=== PATIENT | male | born 1960 | race Caucasian/White ===

== ENCOUNTER 2024-03-16 08:26 | Observation (INO) ==
--- NOTE | 2024-02-16 13:24 | PAT Medication Instructions ---
Medication Instructions Date of Service February 16, 2024 Home Medications amlodipine 10 mg tablet 10 mg PO QAM ascorbic acid (vitamin C) 1,000 mg tablet (Vitamin C) 1 g PO QAM atorvastatin 40 mg tablet 40 mg PO HS garlic 1,000 mg PO QAM [id number] 300 mcg-K 60 mcg-lycop 600 mcg-lutein 300 mcg tablet (Centrum Silver Men) 1 tab PO QAM MEDICATION INSTRUCTIONS: STOP taking 2 weeks before surgery garlic 1,000 mg PO QAM DO NOT take the morning of surgery ascorbic acid (vitamin C) 1,000 mg tablet (Vitamin C) 1 g PO QAM [id number] 300 mcg-K 60 mcg-lycop 600 mcg-lutein 300 mcg tablet (Centrum Silver Men) 1 tab PO QAM Take morning of surgery With a small sip of water, OTHERWISE NOTHING TO EAT OR DRINK AFTER MIDNIGHT: amlodipine 10 mg tablet 10 mg PO QAM Take evening before surgery atorvastatin 40 mg tablet 40 mg PO HS Other Notes If you have any questions please call us at [phone] or [phone] or [phone] or [phone]
--- NOTE | 2024-02-25 08:46 | Anesthesiology Consultation ---
Date of Service February 25, 2024 Assessment & Plan (1) Encounter for pre-operative examination: - patient reports epigastric discomfort with activity associated with GI "gurgling" ongoing for years-denies change or worsening-denies radiation. He states has an upcoming PCP appointment 03/08 to discuss this. Optimization form to be faxed to PCP, Dr. Neo Jurado [facility]. - check BSG am DOS. - Outpatient joint assessment: Patient is currently scheduled for inpatient pathway. If re-evaluated and patient/surgeon requests outpatient pathway, patient is/is not acceptable candidate for outpatient joint program from anesthesia standpoint pending surgeon's office assessment of pt motivation/support/completion of same day joint program preop requirements. Chart Review Chart Review: Pending: Refer to Additional Notes / Consult section and Patient seen in Pre Admission Testing Teaching & Discussion Pre-Anesthesia Teaching/Discussion Notes: Instructed NPO after midnight before surgery, except medications with 15 cc of water. Medication instructions provided according to the PAT guidelines. History Surgery Operation Date: 03/16/24 07:00 Proposed Procedures p Left Total Knee Arthroplasty - Cirilo Cortes MD Height/Weight Height: 6 ft Weight: 130.6 kg Allergies Allergy/AdvReac Type Severity Reaction Status Date / Time No Known Allergies Allergy Verified 02/16/24 07:58 Medications Home Medications Medication Instructions Recorded Confirmed Last Taken amlodipine 10 mg tablet 10 mg PO QAM 05/08/21 02/16/24 05/16/21 ascorbic acid (vitamin C) 1,000 mg 1 g PO QAM 05/08/21 02/16/24 05/13/21 tablet (Vitamin C) atorvastatin 40 mg tablet 40 mg PO HS 05/08/21 02/16/24 05/15/21 garlic 1,000 mg PO QAM 05/08/21 02/16/24 05/13/21 keopufih-wj-dqpzh 300 mcg-K 60 1 tab PO QAM 05/08/21 02/16/24 05/13/21 mcg-lycop 600 mcg-lutein 300 mcg tablet (Centrum Silver Men) Past Medical History Medical History (Updated 02/25/24 @ 09:07 by Estela Billingsley PA-C) Arthritis Degenerative disc disease Diabetes Hyperlipidemia Hypertension controlled, stable per pt Patient denies h/o stroke, seizures, heart attack, heart failure, blood clots/DV Ts or blood transfusions. Exercise / Class Metabolic Activity II 4-5 Yardwork/Stairs/Walk up hill (denies chest discomfort or shortness of breath with one flight of stairs) Past Family History Family History Other No family history of adverse response to anesthesia Past Surgical History Surgical History History of arthroscopy of hip right hip, 2021 History of cardiac cath 2006, + stress test, ph anson, no stents no findings; no longer sees cardio History of colonoscopy History of total hip arthroplasty RT, 2014 Past Anesthesia History No Hx of Anesthesia Complications and No Family Hx of Anesthesia Complications History of PONV No Hx of PONV and No Hx of Motion Sickness Social History Smoking Status: Former smoker tobacco type: smokeless tobacco Do You Dip or Chew Tobacco: Yes (-advised) Smoking End Date: 30 years ago, occasional Hx Alcohol Use: Yes Alcohol type: hard liquor alcohol intake frequency: 3 or more drinks per day Alcohol Intake Frequency Comment: pt has stopped drinking completely for upcoming surgery, 02/10/24 Hx Substance Use: Yes substance use type: marijuana (-advised) Last Used Substance Other:: couple hits a time to help with pain, last use 02/15/24 Review of Systems Denies tremors or seizures since stopping alcohol. Snoring, denies witnessed apneas. Patient denies chest pain, shortness of breath, dyspnea on exertion, reflux, fever, chills, cough, wheezing, or palpitations. Physical Exam Vital Signs Vitals BP 146/78 P 75 TEMP 98.3 SP02 96% on RA RESP 18 Physical Patient resting comfortably in chair in no acute distress, alert and oriented, responding appropriately throughout visit Full cervical extension range of motion without pain TMD < 3 finger breadths Mallampati Score 3 Dentition: intact, denies chipped or loose teeth, caps/crowns, implants or bridges Lungs: normal respiratory effort. Good air movement, clear throughout to auscultation, no adventitious breath sounds Cardiac: regular rate and rhythm, no murmurs noted Carotid arteries: negative bruit bilat Lab Results Anesthesia Preop Results Results Anesthesia Widget: PT 11.1 Seconds (9.0-12.0) 02/25/24 PTT 29 Seconds (21-31) 02/25/24 INR 1.0 (0.9-1.1) 02/25/24 Blood Type A Positive 02/25/24 Antibody Screen NEGATIVE 02/25/24 Testing Laboratory Results 02/24/24 WBC: 8.3 H/H: 15/44 PLATELETS: 172,000 SODIUM: 138 POTASSIUM: 4.0 CHLORIDE: 106 CO2: 26 BUN: 9 CREATININE: 0.9 GLUCOSE: 150 A1c: 6.8% Electrocardiogram Date: 02/25/24 NSR, rate 74 bpm Chest X-Ray Date: 02/25/24 No acute cardiopulmonary findings.
--- NOTE | 2024-03-13 10:42 | History & Physical Report ---
Date of Service March 13, 2024 Assessment & Plan (1) Left knee DJD: 63-year-old male with advanced left knee DJD. He does have multiple other comorbidities including diabetes, obesity, elevated cholesterol, hypertension. He has failed conservative measures. He would like to have his left knee replaced. Plan: Isabelle to proceed with left knee replacement. The risks of this procedure explained and he understands. He does have some edema distally and is going to be very important for him to be compliant with wearing his ZEB stockings. Will use aspirin for DVT prophylaxis. Will likely put some vancomycin in the cement. He is planned to be discharged to home using [facility]. (2) Diabetes: (3) Degenerative disc disease: (4) Hypertension: (5) Hyperlipidemia: (6) Obesity: History of Present Illness Chief Complaint: . Persistent, progressive left knee pain and discomfort. Primary Care Provider: Neo Jurado . The patient is a 63-year-old gentleman who presents for surgical treatment of his left knee. Said a long history of gradual progressive left knee pain and discomfort. Is been through extensive conservative treatment over the years which would become less successful over time. The last shot did not help him at all. He has become more debilitated by his pain. He is actually had to resort to using a cane to get around. He would like to have his left knee fixed. Of note, the patient has a history of right hip replacement done by Dr. Betty do in 2014 and then a scope and iliopsoas release by Dr. Dye just 2 years ago. Allergies Allergy/AdvReac Type Severity Reaction Status Date / Time No Known Allergies Allergy Verified 02/16/24 07:58 Home Medications Medication Instructions Recorded Confirmed Type amlodipine 10 mg tablet 10 mg PO QAM 05/08/21 02/16/24 History ascorbic acid (vitamin C) 1,000 mg 1 g PO QAM 05/08/21 02/16/24 History tablet (Vitamin C) atorvastatin 40 mg tablet 40 mg PO HS 05/08/21 02/16/24 History garlic 1,000 mg PO QAM 05/08/21 02/16/24 History qezdqqgw-jx-hbcpb 300 mcg-K 60 1 tab PO QAM 05/08/21 02/16/24 History mcg-lycop 600 mcg-lutein 300 mcg tablet (Centrum Silver Men) Past Med/Surg History Problem List (Updated 03/13/24 @ 10:39 by Cirilo Cortes MD) Obesity Left knee DJD Status post arthroscopy of hip Encounter for pre-operative examination Iliopsoas bursitis of right hip Medical History Diabetes Degenerative disc disease Arthritis Hypertension controlled, stable per pt Hyperlipidemia Surgical History History of arthroscopy of hip right hip, 2021 History of total hip arthroplasty RT, 2014 History of colonoscopy History of cardiac cath 2006, + stress test, ph anson, no stents no findings; no longer sees cardio Family History Other No family history of adverse response to anesthesia Social History Smoking Status: Former smoker Tobacco Type: Cigarettes Second Hand Exposure: Yes (hx, none for at least 20 years); Do You Dip or Chew Tobacco: Yes (-advised); Hx Alcohol Use: Yes Alcohol type: hard liquor Hx Substance Use: Yes Last Used Substance Other:: couple hits a time to help with pain, last use 02/15/24 Preferred Language: Kyrgyz Communication Ability: Effective Direct Care Supervisor Required: No Beliefs That Will Affect Care: None Current Living Situation: Alone Feels Safe at Home: Yes Assistive Devices: Glasses Review of Systems All systems reviewed & are unremarkable except as noted in HPI & below. Physical Exam . Physical examination reveals a fairly large middle-age male. Examination of his left knee reveals a patient ambulates with use of a cane. He is got varus alignment to his knee. He has a little bit of a varus thrust with weightbearing. Moderate large soft tissue envelope. Does have some edema distally. Range of motion is about 5-1 15. No particular pain with hip motion. Normal hip motion. He is neurologically intact. Constitutional WD/WN, vitals as above Neck trachea midline, no thyromegaly Respiratory normal respiratory effort, lungs clear to auscultation Cardiovascular RRR, no murmur, no edema Gastrointestinal (Abdomen) normal bowel sounds, soft, nontender, no hepatosplenomegaly Results & Data Results & Data Laboratory Results . Diagnostic Findings . X-rays of the left knee were reviewed. Shows advanced left knee DJD. Is got complete loss of his medial joint space. Got a little bit of tibiofemoral subluxation. PG Care Time/CCT Total # of Minutes Spent Total Time Spent with Patient: Total time spent is greater than 50% in coordination of care (as documented) at patient's floor/unit and/or counseling patient: Coding Level of Care Code None Diagnoses Left knee DJD M17.12 Diabetes E11.9 Degenerative disc disease Hypertension I10 Hyperlipidemia E78.5 Obesity E66.9
[~2024-03-16 08:26] MED LIST: BUPIVACAINE 0.25% PF 30 ML VIAL ONE; BUPIVACAINE 0.5 % 5 MG/1 ML PF 10ML VIAL ONE
[2024-03-16] MEDS ORDERED: LIDOCAINE 2% 2 ML VIAL/AMP(20MG/ML) INFIL ONE (09:50)
[2024-03-16] MEDS ORDERED: MIDAZOLAM HCL 1 MG/ML 2ML VIAL ONE (09:50)
[2024-03-16] MEDS ORDERED: fentaNYL citrate PF 100 MCG/2 ML VIAL ONE (09:50)
--- NOTE | 2024-03-16 10:21 | History & Physical Bridge Note ---
Date of Service March 16, 2024 History & Physical Bridge Note I have examined the patient, reviewed the History & Physical and in the interval since the performance of the History & Physical I have noted the following changes of clinical significance: no changes noted
[2024-03-16] MEDS: ACETAMINOPHEN 500 MG TAB PO SCH ×2 (10:35→17:08)
[2024-03-16] MEDS: FAMOTIDINE 20 MG TAB PO SCH (10:35)
[2024-03-16] MEDS: dexAMETHasone**PF** 10 MG/ML VIAL IV SCH (10:35)
[2024-03-16] MEDS: CeleBREX 200 MG CAP PO SCH (10:35)
[2024-03-16] MEDS: METOCLOPRAMIDE HCL 10 MG TABLET PO SCH (10:36)
[2024-03-16] MEDS: LR 60ML/HR IV SCH (10:36)
[2024-03-16] MEDS: LR 500ML BOLUS, THEN 15ML/HR IV SCH (10:36)
[2024-03-16] MEDS ORDERED: ONDANSETRON INJ 2 MG/ML 2 ML VIAL IV PRN ×2 (10:38→16:01)
[2024-03-16] MEDS ORDERED: PROMETHAZINE HCL 6.25 MG in SODIUM CHLORIDE 0.9% 50 ML IV PRN (10:38)
[2024-03-16] MEDS ORDERED: ATROPINE SULFATE 0.1 MG/ML 10ML SYR IV PRN (10:38)
[2024-03-16] MEDS ORDERED: ePHEDrine sulfate 50 MG/ML AMP IV PRN (10:38)
[2024-03-16] MEDS ORDERED: fentaNYL citrate PF 100 MCG/2 ML VIAL IV PRN (10:38)
[2024-03-16] MEDS: ceFAZolin 3000MG 3,000 MG/72.5 ML BAG IV SCH (12:14)
[2024-03-16] MEDS ORDERED: ceFAZolin 330 MG/ML 1 GM VIAL ONE (12:32)
[2024-03-16] MEDS: ROPIV 0.5% 246mg, Ketorolac 30mg, EPINEPHrine 0.5mg in NSS INFIL SCH (12:48)
[2024-03-16] MEDS: ORTHO JOINT ANESTHETIC ONE (12:49)
[2024-03-16] MEDS: VANCOMYCIN HCL 1000MG/20ML VIAL ONE (13:01)
[2024-03-16] MEDS: TRANEXAMIC ACID 1,000 MG **IV Intra-op IV SCH (13:09)
--- NOTE | 2024-03-16 14:08 | Operative Report ---
PG Post Operative Report Pre & Post Diagnosis Operation Date: 03/16/24 10:40 Pre-Op Diagnosis: Left Knee Degenerative Joint Disease Post-Op Diagnosis: Left Knee Degenerative Joint Disease I identified the patient and participated in the time-out.: Yes Procedure Operation Date: 03/16/24 10:40 Actual Procedures p Left Total Knee Arthroplasty(Left) - Cirilo Cortes MD Surgeon Cirilo Cortes MD Marketing Analytics Manager Griffin Guerra PA-C Estimated Blood Loss 100 Findings Consistent with Post-Op Diagnosis operative findings revealed advanced left knee DJD with grade 4 phgi-vi-sgqx disease of the medial and patellofemoral compartments. Specimens left knee sent for pathology Anesthesia Type Spinal MAC Complications none Disposition Accompanied Patient To Recovery: No Indications Patient is a 63-year-old very large gentleman whose had a several year history of increasing left knee pain discomfort described to gotten worse over time. He failed all conservative measures. X-rays show advanced knee arthritis. He el ected proceed with total knee arthroplasty. Description of Procedure Operative implants consists of: 1 Biomet Vanguard size 70 left posterior stabilized femoral component. 2. Biomet size 75 tibial tray. 3. 14 mm posterior stabilized polyethylene insert. 4. 31 x 8 all poly patella. The patient was taken to the op room, identified, and placed on the operating table in the supine position. All contact areas were appropriately padded. IV antibiotics fibra anesthesia team. A spinal anesthetic and adductor canal block had been provided in the holding area. A left thigh high tourniquet was then placed. The left lower extremity was then prepped and draped in usual sterile fashion. The left leg was elevated and exsanguinated with use of an Esmarch and a turn was placed at 300 mmHg. An anterior approach to the left knee was then performed to longitudinal incision centered over the patella. Sharp dissection was Through subcutaneous tissue down the extensor mechanism. A medial parapatellar arthrotomy incision was made. Some subperiosteal dissection was carried out medially. The fat pad was dissected from Neath patella tendon. The lateral patellofemoral ligament was released. Patella subluxated laterally and the knee was flexed. The osteophytes taken on distal femur. The ACL and PCL were then released from distal femur the tibia subluxated anteriorly. The external tibial alignment jig was then placed on the anterior face the tibia and adjusted 14 mm medially. The proximal tibial cut was made remove about 1 to 2 mm of bone from the medial side. The tibia sized to a size 75. Attention drawn the femur. The distal femur was entered with a sharp drill. Intramedullary canal was suction. A left 6 degree valgus cutting guide was placed. The distal femoral cutting block was pinned in place. Distal femoral cut was made to take an additional 3 mm of bone off distal femur. The femur was then sized to a size 70. The AP cutting block was pinned parallel to the epicondylar axis which was 4 degrees of external rotation. The anterior cut, anterior chamfer, posterior cut, posterior chamfer cuts were made. The box cutting guide was placed and just slight lateral and the box cut was made. The knee was flexed. The remnants of medial and lateral menisci were excised. The osteophytes were taken off the posterior aspect the femur. A trial femoral component was placed. The tibial tray was pinned in Kalie external rotation and the drill and stem punch use great defect in proximal tibia for the tibial tray. The knee was then trialed and the 14 mm insert fit most appropriately. Attention was then drawn to the patella. The patella was cleaned of all soft tissues. Patella thickness measured 25 mm in thickness was cut down to 14. Was sized to a size 31 patella. The lug holes were drilled for the 31 patella. The lateral osteophytes removed. Patella button was placed. Knee was taken through range of motion patella tracked nicely with no thumbs test. Attention was then drawn toward placing the permanent components. All trial components were removed. A bone plug was placed into the distal femur limit blood loss. A double batch of Palacos G cement was mixed. I did add an additional gram of vancomycin due to this patient's morbid obesity obesity and diabetes. A Biomet Vanguard size 70 left posterior stabilized femoral component, size 75 tibial tray, a 14 mm posterior Byce polyethylene insert, and a 31 x 8 all poly patella then cemented in place. The knee was brought out into full extension till cement hardened. A final cement check was then performed. The pericapsular tissues were injected with total of 100 cc of Ortho mix. Patient did receive 1 g tranexamic acid. The tourniquet was then let down for final tourniquet time of 59 minutes. Hemostasis was assured use electrocautery. Wounds once again irrigated. The extensor mechanism was then closed with a combination of 1 PDS suture and 1 Vicryl suture in a [id number] fashion. Extensor Meclomen checked found to be intact with the subcutaneous tissues then closed with 2 Dexon suture in a buried interrupted fashion the skin was closed skin claudia. Leg was then cleaned and dried a sterile dressing was Xeroform, 4 fours, sterile cast padding, Cassius bandage were applied. Patient then transferred to the recovery room in stable condition. Patient tolerated procedure well and there were no complications. Griffin Guerra, my physician tiler's assistant, was present for the entire procedure. His assistance was essential and required for appropriate patient positioning, prepping and draping, surgical exposure, performing the technical details of the operation, placement the implants, closure of the wound, and placement of the sterile bandage. I attest to the content of the Intraoperative Record and any orders documented therein. Any exceptions are noted below.
--- NOTE | 2024-03-16 14:55 | Anesthesiology Progress Note ---
Date of Service March 16, 2024 Anesthesia Post Procedure Vital Signs Vital Signs: Temp Pulse Pulse Resp BP Pulse Ox O2 Del Method 03/16/24 14:50 93 H 17 163/87 H 93 Nasal Cannula 03/16/24 14:40 94 H 20 138/83 92 Room Air 03/16/24 14:30 37.3 C 92 H 16 147/77 H 95 Room Air 03/16/24 14:20 93 H 18 126/71 95 Oxymask 03/16/24 14:10 89 17 121/64 94 Oxymask 03/16/24 14:02 37.5 C 95 H 20 105/55 L 90 Oxymask 03/16/24 09:01 36.7 C 85 18 157/73 H 96 Room Air O2 Flow Rate 03/16/24 14:50 2 03/16/24 14:40 0 03/16/24 14:30 0 03/16/24 14:20 8 03/16/24 14:10 8 03/16/24 14:02 8 03/16/24 09:01 Notes Mental Status: alert / awake / arousable Patient Amnestic to Procedure: Yes Nausea / Vomiting: adequately controlled Pain: adequately controlled Airway Patency, RR, SpO2: stable & adequate BP & HR: stable & adequate Hydration State: stable & adequate Neuraxial Anesthesia: was administered and sensory block is resolving Anesthetic Complications: no major complications apparent
--- NOTE | 2024-03-16 14:56 | XRay Report ---
EXAM: Radiographs of the Left Knee 2 Views INDICATION: Postoperative assessment. TECHNIQUE: Frontal and lateral views of the left knee. COMPARISON: No relevant prior studies available. FINDINGS: Bones/joints: Suspect appearance of total knee arthroplasty components which are well-seated and intact. No fracture, subluxation or dislocation. Soft tissues: Expected postoperative soft tissue swelling and gas. IMPRESSION: Satisfactory appearance of knee arthroplasty. ACT 112: Negative or not required by law. Electronically signed by Tari Solares 03-16-2024 2:56 PM
[2024-03-16] MEDS ORDERED: MAGNESIUM HYDROXIDE SUSP 30 ML UDC PO PRN (16:01)
[2024-03-16] MEDS ORDERED: HYDROmorphone INJ 0.5 MG/0.5 ML SYR IV PRN (16:01)
[2024-03-16] MEDS ORDERED: GLUCOSE 40% GEL 15 GM TUBE PO PRN (16:01)
[2024-03-16] MEDS ORDERED: NALOXONE HCL 0.4 MG/1 ML VIAL/CARP IV PRN (16:01)
[2024-03-16] MEDS ORDERED: CARBOHYDRATES FOR HYPOGLYCEMIA PO PRN (16:01)
[2024-03-16] MEDS ORDERED: GLUCOSE 10 TAB/TUBE PO PRN (16:01)
[2024-03-16] MEDS ORDERED: METOCLOPRAMIDE HCL INJ 5 MG/ML 2 ML VIAL IV PRN (16:01)
[2024-03-16] MEDS ORDERED: ALUMINUM/MAGNESIUM SUSP 30 ML UDC PO PRN (16:01)
[2024-03-16] MEDS ORDERED: PHARMACY GLYCEMIC MGMT CONSULT PRN (16:01)
[2024-03-16] MEDS ORDERED: DEXTROSE 50% 50 ML SYRINGE IV PRN (16:01)
[2024-03-16] MEDS ORDERED: bisacodyL 10 MG SUPP PR PRN (16:01)
[2024-03-16] MEDS ORDERED: GLUCAGON FOR INJ 1 MG VIAL SQ PRN (16:01)
--- NOTE | 2024-03-16 16:23 | Pharmacy Report ---
Pharmacy Glycemic Short Note 2 - Date of Service March 16, 2024 - Glycemic Short BSG Results (Last 24 hours): 03/16/24 14:06 POC Glucose 157 H OUTPATIENT ANTIDIABETIC REGIMEN: * n/a - diet controlled ASSESSMENT: * 63 year old s/p surgery, POD -0. Type 2 diabetic, however not on any medications at home. A1c improving per outpatient provider notes/patient has been adjusting diet. Postop BSG 157 mg/dL - patient did receive IV preop steroids anticipate steroid induced hyperglycemia. Will add on novolog weight based stress of 2/3 dosing for now. Potentially consider adding low dose basal if BSGs trend upward with steroids. PLAN FOR INPATIENT GLYCEMIC CONTROL: * Hold outpatient oral diabetes medications * Basal insulin * Lantus 0-10 units hs * Bolus insulin * NovoLog per scale ACHS or Q6hrs while NPO * Goal Range: Low 110 mg/dL - High 140 mg/dL * Correction Factor: 20 mg/dL/unit * Nutritional / Prandial insulin per carb ratio of 1 unit per 7 grams CHO c onsumed
[2024-03-16] MEDS: ASCORBIC ACID 500 MG TAB PO SCH (17:08)
[2024-03-16] MEDS: INSULIN ASPART PER UNIT CHARGE SC SCH (17:09)
[2024-03-16] MEDS: LANTUS PER UNIT CHARGE SC ONE (17:09)
[2024-03-16] MEDS: KETOROLAC 30 MG/ML VIAL IV SCH (17:10)
[2024-03-16] MEDS: oxyCODONE HCL IR 5 MG TAB (IMMEDIATE RELEASE) PO PRN (18:34)
[2024-03-16] MEDS: TRANEXAMIC ACID / 0.7% NACL 1,000 MG/100 ML BAG IV SCH (19:50)
[2024-03-16] MEDS: ceFAZolin 2000MG 2,000 MG/15 ML SYR IV SCH (20:04)
[2024-03-16] MEDS: DOCUSATE SODIUM 100 MG CAP PO SCH (20:12)
[2024-03-16] MEDS: ASPIRIN 81 MG ECTAB PO SCH (20:12)
[2024-03-16] MEDS: ATORVASTATIN 40 MG TAB PO SCH (20:12)
[2024-03-16] MEDS: SENNA 8.6 MG TAB PO SCH (20:12)
[2024-03-16] MEDS ORDERED: SENNA 8.6 MG TAB PO SCH (21:00)
[2024-03-17] MEDS: INSULIN ASPART PER UNIT CHARGE SC SCH (00:43)
[2024-03-17 06:26] LABS: Hematocrit (blood only) 36.2 % (42.0-52.0); Hemoglobin 12.8 g/dl (14.0-18.0); Mean Corpuscular Hemoglobin 31.7 pg (25.0-34.0); Mean Corpuscular Hgb Conc 35.4 g/dL (32.0-36.0); Mean Corpuscular Volume 89.6 fL (80.0-100.0); Mean Platelet Volume 11.9 fL (9.4-12.4); Platelet Count 156 K/uL (130-400); RDW Coefficient of Variation 12.1 % (11.5-14.5); RDW Standard Deviation 39.8 fL (36.4-46.3); Red Blood Count 4.04 M/uL (4.70-6.10); White Blood Count 13.91 K/ul (4.8-10.8)
[2024-03-17 06:42] LABS: BUN Creatinine Ratio 13.9 (10-20); Calcium 8.9 mg/dl (8.6-10.3); Creatinine Clr Calc Pharmacy 130.2 ml/min; Potassium 4.3 mmol/L (3.5-5.1)
[2024-03-17] MEDS ORDERED: NON-FORMULARY MEDICATION (Garlic Capsule) PO SCH (09:00)
[2024-03-17] MEDS ORDERED: NON-FORMULARY MEDICATION (Mv-Min-Folic-K1-Lycopen-Lutein [Centrum Silver Men] 300-600-300 PO SCH (09:00)
[2024-03-17] MEDS ORDERED: NON-FORMULARY MEDICATION (Ascorbic Acid (Vitamin C) [Vitamin C] 1,000 mg Tablet) PO SCH (09:00)
[2024-03-17] MEDS ORDERED: NON-FORMULARY MEDICATION (Amino Acids [Amino Acid] Capsule) PO SCH (09:00)
--- NOTE | 2024-03-17 09:27 | Orthopedic Progress Note ---
Date of Service March 17, 2024 Assessment & Plan (1) Left knee DJD: Plan: 63-year-old gentleman postop day 1 from left knee replacement doing pretty well. Had a pretty good night. Pains been controlled. No chest pain or shortness of breath. Not feeling dizzy or lightheaded. He is doing well with therapy. Plan: 1. DVT prophylaxis including thigh-high teds, SCD, aspirin twice a day. 2. PT/OT. Weight-bear as tolerated. Left total knee protocol. 3. Pain control. Doing well with current pain regimen. 4. Disposition. Plan to discharge to home with some home health later today after therapy. (2) Obesity: Admission and Anticipated Discharge Date Admission Date: March 16, 2024 Subjective 63-year-old gentleman postop day 1 from a left knee replacement. He is doing pretty well. He is currently working with a therapist. His pains been controlled overnight. No chest pain or shortness of breath. Not feeling dizzy or lightheaded. Physical Exam Physical Exam: Physical exam shows a fairly large middle-age male. Sitting up in his bedside talking with therapist. Examination of the left knee and leg reveals the dressing be clean dry and intact he can dorsiflex and plantarflex his foot appropriately. He can do a straight leg raise. Respiratory: normal respiratory effort, lungs clear to auscultation Cardiovascular: RRR, no murmur, no edema Gastrointestinal (Abdomen): normal bowel sounds, soft, nontender, no hepatosplenomegaly Results & Data Vital Signs (Past 12 Hours) Vital Signs Temp Pulse Resp BP Pulse Ox O2 Del Method 03/17/24 07:37 36.7 C 62 18 125/69 91 Room Air 03/17/24 05:10 36.7 C 80 18 136/70 94 Room Air 03/17/24 03:05 36.8 C 86 16 172/72 H 91 Room Air 03/16/24 22:39 36.5 C 71 18 120/62 91 Room Air Laboratory Results Hemoglobin is 12.8. Hematocrit is 36.2. Electrolytes are stable.
[2024-03-17] MEDS: dexAMETHasone 10 MG in SYRINGE 0 ML IV SCH (09:50)
[2024-03-17] MEDS: amLODIPine BESYLATE 5 MG TAB PO SCH (09:51)
[2024-03-17] MEDS: TAMSULOSIN HCL 0.4 MG CAP PO SCH (09:51)
[2024-03-17] MEDS: MULTIVITAMIN TAB PO SCH (09:51)
== END 2024-03-17 11:05 | disposition home health service (06) ==
LOC: ASU 08:26 → 3E 08:26